=== PATIENT | male | born 1975 | race Caucasian/White ===

== ENCOUNTER → 2020-09-14 15:16 | Outpatient (BNVA) | payer MEDICAID, SELFPAY | PROVIDERS: PCP Student in an Organized Health Care Education/Training Program; Visit Provider Surgery | DX: K42.9 Umbilical hernia without obstruction or gangrene (principal) | CPT/HCPCS: 99202 ==

== ENCOUNTER 2020-09-29 06:03 | Day surgery (SDC) | payer MEDICAID, SELFPAY ==
[2020-09-22 10:48] VITALS: BMI 35.2
--- NOTE | 2020-09-24 14:08 | P.CONAN_ITS ---
Documented by User: Jeanne Flroes 09/24/20 14:09 HPI - Anesthesia Eval Consult details Narrative: 44yo M for Hernia Repair Umbilical, Poss Mesh Suboxone daily PMFSH Active Problems Active Problems: All Active Problems (Updated 09/22/20 @ 10:53 by Malgorzata Diaz) Umbilical hernia (Acute) History of narcotic use (Acute) Chronic back pain (Acute) Hypertension (Acute) Diabetes mellitus (Acute) Past Medical History Medical History Asthma Back pain Chronic back pain COVID-19 vaccine administered Diabetes mellitus History of narcotic use Hypertension Umbilical hernia Surgical History Surgical History History of appendectomy History of hernia surgery History of ureter stent Social History Social History Alcohol intake: never Smoking Status: Former smoker Tobacco Type: Cigarette Smoking Quit Date: Substance Use Type: Former Substance User and Opiates Substance Use Type Other:: curently taking suboxone Advance Directives Information Provided: No Meds Allergies Allergy/AdvReac Type Severity Reaction Status Date / Time shellfish derived Allergy Severe throat Verified 09/29/20 06:11 closes bee pollen [BEE STINGS] Allergy Mild THROAT Verified 09/29/20 06:11 CLOSES Iodinated Contrast Media AdvReac Severe DIFFICULTY Verified 09/29/20 06:11 [IV Dye, Iodine Containing] BREATHING Home Medications Medication Instructions Recorded Confirmed Last Taken Type buprenorphine 8 mg-naloxone 2 mg 2 film SUBLINGUAL DAILY 09/14/20 09/22/20 09/28/20 17:15 History sublingual film calcium carbonate 600 mg (1,500 1 cap PO DAILY 09/14/20 09/22/20 Unknown History mg)-vitamin D3 500 unit capsule cholecalciferol (vitamin D3) 1,250 1,250 mcg PO QWEEK 09/14/20 09/22/20 Unknown History mcg (50,000 unit) capsule gabapentin 100 mg capsule 100 mg PO BID 09/14/20 09/22/20 09/29/20 04:30 History glipizide 10 mg tablet 10 mg PO TID tab 09/14/20 09/22/20 Unknown History hydrochlorothiazide 25 mg tablet 25 mg PO DAILY 09/14/20 09/22/20 Unknown History hydroxyzine HCl 50 mg tablet 50 mg PO BEDTIME 09/14/20 09/22/20 Unknown History insulin glargine 100 unit/mL (3 100 unit SUBCUT QPM 09/14/20 09/22/20 Unknown History mL) subcutaneous pen lisinopril 20 mg tablet 20 mg PO DAILY 09/14/20 09/22/20 Unknown History metformin 500 mg tablet 500 mg PO BID 09/14/20 09/22/20 Unknown History omega-3 fatty acids 1,000 mg 1,000 mg PO BID 09/14/20 09/22/20 Unknown History capsule Exam Exam Date and Time: September 24, 2020 1408 Height,Weight and Vital Signs: Height 5 ft 7 in Weight 102 kg Assessment and Plan Assessment Anesthesia Assessment: Chart Reviewed Documented by User: Pascual Whyte MD 09/29/20 07:25 REPLACED BY [facility] Past Medical History Medical History Asthma Back pain Chronic back pain COVID-19 vaccine administered Diabetes mellitus History of narcotic use Hypertension Umbilical hernia Surgical History Surgical History History of appendectomy History of hernia surgery History of ureter stent Social History Social History Alcohol intake: never Smoking Status: Former smoker Tobacco Type: Cigarette Smoking Quit Date: Substance Use Type: Former Substance User and Opiates Substance Use Type Other:: curently taking suboxone Advance Directives Information Provided: No Meds Allergies Allergy/AdvReac Type Severity Reaction Status Date / Time shellfish derived Allergy Severe throat Verified 09/29/20 06:11 closes bee pollen [BEE STINGS] Allergy Mild THROAT Verified 09/29/20 06:11 CLOSES Iodinated Contrast Media AdvReac Severe DIFFICULTY Verified 09/29/20 06:11 [IV Dye, Iodine Containing] BREATHING Home Medications Medication Instructions Recorded Confirmed Last Taken Type buprenorphine 8 mg-naloxone 2 mg 2 film SUBLINGUAL DAILY 09/14/20 09/22/20 09/28/20 17:15 History sublingual film calcium carbonate 600 mg (1,500 1 cap PO DAILY 09/14/20 09/22/20 Unknown History mg)-vitamin D3 500 unit capsule cholecalciferol (vitamin D3) 1,250 1,250 mcg PO QWEEK 09/14/20 09/22/20 Unknown History mcg (50,000 unit) capsule gabapentin 100 mg capsule 100 mg PO BID 09/14/20 09/22/20 09/29/20 04:30 History glipizide 10 mg tablet 10 mg PO TID tab 09/14/20 09/22/20 Unknown History hydrochlorothiazide 25 mg tablet 25 mg PO DAILY 09/14/20 09/22/20 Unknown History hydroxyzine HCl 50 mg tablet 50 mg PO BEDTIME 09/14/20 09/22/20 Unknown History insulin glargine 100 unit/mL (3 100 unit SUBCUT QPM 09/14/20 09/22/20 Unknown History mL) subcutaneous pen lisinopril 20 mg tablet 20 mg PO DAILY 09/14/20 09/22/20 Unknown History metformin 500 mg tablet 500 mg PO BID 09/14/20 09/22/20 Unknown History omega-3 fatty acids 1,000 mg 1,000 mg PO BID 09/14/20 09/22/20 Unknown History capsule Exam Airway Mallampati Class: III TM Dist: >3cm Neck ROM: Full Denture: Upper and Lower Loose/Missing/Broken Teeth: Yes Heart: RRR Lungs: NL Assessment and Plan Assessment Anesthesia Assessment: Anesthesia Plan Discussed, PAT Visit and Chart Reviewed Final Anesthetic Review NPO: Yes ASA Class: III Final Preanesthetic Review: No Changes in Pt Med Stat, Meds/Allgs Chart Reviewed, Consent Obtained/Reviewed and Anes Risks/Benef Reviewed Patient Risk: Intermediate Procedure Risk: Low Anesthetic Plan Anesthetic Plan: GA Disposition: Standard PACU
[2020-09-29 06:28] VITALS: BP 130/81; PULSE 80; RESP 18; TEMP 36.4; O2SAT 99
[2020-09-29 06:30] LABS: Glucose, Whole Blood 149 mg/dL (60-115)
[2020-09-29] MEDS: Lactated Ringers 1,000 ML 100 ML IVCONT (06:38)
--- NOTE | 2020-09-29 07:37 | MHC.SHP ---
Pre-Procedural Eval Section B Chief Complaint: umbilical hernia without obstruction Allergies: Allergies Allergy/AdvReac Type Severity Reaction Status Date / Time shellfish derived Allergy Severe throat Verified 09/29/20 06:11 closes bee pollen [BEE STINGS] Allergy Mild THROAT Verified 09/29/20 06:11 CLOSES Iodinated Contrast Media AdvReac Severe DIFFICULTY Verified 09/29/20 06:11 [IV Dye, Iodine Containing] BREATHING Plan I have reviewed the history and physical and performed a pertinent physical examination on my patient. No changes have occurred unless specified.
--- NOTE | 2020-09-29 08:11 | W.PM.OPN ---
Operative Note Operative Note Date of Service: 09/29/20 Narrative: Preop diagnosis: Umbilical hernia Postop diagnosis: Umbilical hernia Procedure: Repair of umbilical hernia with mesh Surgeon: Nelson eH MD [employer] Att[employer]: None The patient is a 44-year-old male with a reducible umbilical hernia. He wanted to proceed with repair. He understood the technique of repair with possible mesh. He was aware of the risks, benefits, and alternatives. He was brought the operating room and placed supine on the table under general anesthesia via endotracheal tube. The abdomen was prepped and draped in the usual sterile fashion. A surgical time-out was done. The patient received cefazolin 2 g IV preoperatively. I infiltrated the planned line incision using lidocaine 1%. I made an incision on the skin on the supraumbilical margin transversely using a blade 15. This was carried down through the full-thickness of the skin and subcutaneous fat. I then lifted the umbilicus as a flap off of the rest of the fascia and by doing so were able to visualize the hernia. The hernia defect was about 1 cm in size. I was able to palpate for the underside of the hernia defect and there were no adhesions in this area. I therefore positioned a small Ventralex mesh underneath the defect. This was flattened. The Ventralex mesh was secured to the fascial edge using Prolene 2 sutures on each side through the Prolene straps. The Prolene straps were then trimmed. I then closed the fascial defect with a figure-of 8 Maxon 1 stitch. I irrigated the area. I then placed and Dexon 0 stitch from the umbilicus to the fascia to tack this and recreated the umbilical dimple. I closed the incision with a running Dexon 4-0 subcuticular stitch. I infiltrated the area with Marcaine 0.5% for postop analgesia. Steri-Strips and dressings were applied. The procedure was then completed The patient tolerated the procedure well. There were no complications noted. Initial and final counts of sponges and instruments were correct. Estimated blood loss was less than 5 cc The patient was extubated without difficulty and transferred to the recovery room with stable vital signs.
--- NOTE | 2020-09-29 08:16 | PM.OP ---
Brief Operative Note Date of Service: 09/29/20 Pre-op diagnosis: Umbilical hernia Post-op diagnosis: same Procedure: Repair of umbilical hernia with mesh Implants: Mesh Surgeon: Nelson He MD Anesthesia: MAC Estimated blood loss (mL): 2 Pathology: none sent Condition: stable Disposition: PACU
[2020-09-29 08:20] VITALS: BP 136/81; PULSE 84; RESP 20; TEMP 37.3; O2SAT 100
[2020-09-29 08:25] VITALS: BP 138/83; PULSE 82; RESP 20; O2SAT 100
[2020-09-29 08:30] VITALS: BP 131/85; PULSE 79; RESP 20; O2SAT 96
[2020-09-29 08:35] VITALS: BP 128/82; PULSE 84; RESP 20; O2SAT 93
[2020-09-29 08:50] VITALS: BP 123/77; PULSE 82; RESP 20; TEMP 37.3; O2SAT 96
== END 2020-09-29 09:25 | disposition home or self-care (01) ==
PROVIDERS: PCP Student in an Organized Health Care Education/Training Program; Visit Provider Surgery
PROC: (CPT 49585; principal; 2020-09-29 07:30)
DX: K42.9 Umbilical hernia without obstruction or gangrene (principal); I10 Essential (primary) hypertension; J45.909 Unspecified asthma, uncomplicated; E11.9 Type 2 diabetes mellitus without complications; Z91.041 Radiographic dye allergy status; Z87.891 Personal history of nicotine dependence; M54.5 Low back pain; G89.29 Other chronic pain; F11.90 Opioid use, unspecified, uncomplicated; Z79.4 Long term (current) use of insulin; Z79.899 Other long term (current) drug therapy
CPT/HCPCS: 49585; 82947; C1781; J0690; J1100; J1170; J1885; J2250; J2405

== ENCOUNTER → 2020-10-12 12:52 | Outpatient (BNVA) | payer MEDICAID, SELFPAY | PROVIDERS: PCP Counselor Addiction (Substance Use Disorder); Visit Provider Surgery | DX: Z48.815 Encounter for surgical aftercare following surgery on the digestive system (principal); Z87.19 Personal history of other diseases of the digestive system | CPT/HCPCS: 99212 ==

== ENCOUNTER 2021-10-27 21:06 | Emergency (ER) | payer MEDICAID, SELFPAY ==
--- NOTE | 2021-10-27 | ECG_ITS ---
Test Reason : SIBDHN Blood Pressure : / mmHG Vent. Rate : 111 BPM Atrial Rate : 111 BPM P-R Int : 136 ms QRS Dur : 084 ms QT Int : 376 ms P-R-T Axes : 061 049 056 degrees QTc Int : 511 ms Sinus tachycardia Possible Left atrial enlargement Prolonged QT When compared with ECG of 31-AUG-2007 23:50, QT has lengthened Referred By: Generic ED Physician Electronically Signed By:CHARITO YOUNG
[2021-10-27 21:11] VITALS: BP 136/75; PULSE 120; RESP 18; TEMP 36.2; O2SAT 96; BMI 39.1
[2021-10-27 21:58] LABS: MANUAL DIFF FLAG NO
[2021-10-27 22:18] LABS: Basophils Percent Auto 0.4 % (0-2); Eosinophils Absolute Auto 0.3 X10*3/uL (0.0-0.4); Eosinophils Percent Auto 3.3 % (0-4); Hematocrit 35.1 % (42.0-52.0); Hemoglobin 11.7 g/dl (14.0-18.0); Imm Gran Abs Auto 0.06 X10*3/uL (0.00-0.03); Imm Gran Pct Auto 0.6 % (0.0-0.4); Lymphocytes Absolute Auto 4.2 X10*3/uL (1.2-4.9); Lymphocytes Percent Auto 40.7 % (20-40); Mean Corpuscular HGB Conc 33.3 g/dl (31.0-36.0); Mean Corpuscular Hemoglobin 28.5 pg (27.0-33.0); Mean Corpuscular Volume 85.6 fL (80.0-98.0); Mean Platelet Volume 10.6 fL (9.4-12.4); Monocytes Absolute Auto 0.7 X10*3/uL (0.1-1.2); Monocytes Percent Auto 7.1 % (2-11); Neutrophils Absolute Auto 4.9 x10*3/uL (2.0-8.3); Neutrophils Percent Auto 47.9 % (45-73); Platelet Count 214 X10*3/uL (160-400); Red Cell Distribution Width 13.4 % (11.0-16.0); White Blood Count 10.3 X10*3/uL (4.8-10.8)
[2021-10-27 22:23] LABS: Alanine Aminotransferase 47 U/L (0-40); Albumin Level 3.9 g/dL (3.5-5.0); Alkaline Phosphatase 103 U/L (39-117); Anion Gap 16 (12-20); Aspartate Amino Transferase 35 U/L (5-37); Bilirubin Total 0.3 mg/dL (0.0-1.0); Blood Urea Nitrogen 14 mg/dL (9-16); Calcium 8.8 mg/dL (8.4-10.2); Carbon Dioxide 26 mmol/L (22-29); Chloride 106 mmol/L (96-108); Creatinine Clr Calc Pharmacy 139.9; Estimated Glomerular Filt Rate > 60; Glucose Random 162 mg/dL (60-115); Potassium 3.6 mmol/L (3.3-5.1); Sodium 144 mmol/L (135-145); Total Protein 6.5 g/dL (6.5-8.0)
[2021-10-27 22:37] LABS: COVID-19 Test Negative (Negative); IDNOW Serial# 16C4AD1C; Influenza A Negative (Negative); Influenza B2 Negative (Negative)
== END 2021-10-28 01:21 | disposition left against medical advice (07) ==
PROVIDERS: Emergency Provider Emergency Medicine; PCP Counselor Addiction (Substance Use Disorder)
DX: R20.0 Anesthesia of skin (principal); Z79.899 Other long term (current) drug therapy; Z20.822 Contact with and (suspected) exposure to COVID-19
CPT/HCPCS: 80053; 85025; 87502; 87635; 93005; 99281; 99283

== ENCOUNTER → 2022-07-08 16:03 | Outpatient (BNVA) | payer MEDICAID, SELFPAY | PROVIDERS: PCP Counselor Addiction (Substance Use Disorder); Visit Provider Internal Medicine Endocrinology, Diabetes & Metabolism | DX: E29.1 Testicular hypofunction (principal) | CPT/HCPCS: 99202 ==